=== PATIENT | female | born 1965 | race Two or more races ===

== ENCOUNTER 2020-04-30 12:30 | Inpatient (IN) | payer OTHER ==
[~2020-04-30] VITALS: Ht 162.6 cm; Wt 76.2 kg
== END 2020-05-04 14:55 | disposition home or self-care (01) | DRG 743 ==
LOC: O/R 05-01 05:00 → OB/GYN 05-01 05:00 → SURH 05-01 12:00 → OB/GYN 05-04 14:55
PROVIDERS: ADMIT Specialist; ATTEND Specialist
PROC: 0UT20ZZ Resection of Bilateral Ovaries, Open Approach (ICD-10-PCS; 2020-05-01)
PROC: 0UT70ZZ Resection of Bilateral Fallopian Tubes, Open Approach (ICD-10-PCS; 2020-05-01)
PROC: 07BC0ZX Excision of Pelvis Lymphatic, Open Approach, Diagnostic (ICD-10-PCS; 2020-05-01)
PROC: 0DBU0ZZ Excision of Omentum, Open Approach (ICD-10-PCS; 2020-05-01)
PROC: 0UT90ZZ Resection of Uterus, Open Approach (ICD-10-PCS; principal; 2020-05-01 12:00)
PROC: 30233N1 Transfusion of Nonautologous Red Blood Cells into Peripheral Vein, Percutaneous Approach (ICD-10-PCS; 2020-05-03)
DX: D27.1 Benign neoplasm of left ovary (principal); D27.0 Benign neoplasm of right ovary; D25.1 Intramural leiomyoma of uterus; D25.2 Subserosal leiomyoma of uterus; D20.1 Benign neoplasm of soft tissue of peritoneum; N72 Inflammatory disease of cervix uteri; N80.0 Endometriosis of uterus; N84.0 Polyp of corpus uteri; D64.89 Other specified anemias